=== PATIENT | female | born 1975 | race Caucasian/White ===

== ENCOUNTER 2016-12-08 15:23 | Day surgery (SDC) | payer OTHER ==
[~2016-12-08] VITALS: Ht 162.6 cm; Wt 68.1 kg
--- NOTE | ~2016-12-08 | OR ---
ADMIT: 12/08/2016 RM/LOC: [facility] MR#: [id number] [address] [address] JOSEFINA COSTA [address] [place] [address] Operative/Delivery Room Report SEX: F AGE: 41 : 1975 SURGERY DATE: 12/08/2016 SURGEON: Elliot Thomas MD PREOPERATIVE DIAGNOSIS: Acute appendicitis. POSTOPERATIVE DIAGNOSIS: Acute nonperforated appendicitis. PROCEDURE PERFORMED: Laparoscopic appendectomy. ANESTHESIA: General endotracheal. ESTIMATED BLOOD LOSS: Less than 10 mL. DESCRIPTION OF PROCEDURE: After appropriate informed consent was obtained, the patient was brought to the operating room. General endotracheal anesthesia was induced. The patient's abdomen was prepped and draped in a sterile fashion. A small infraumbilical incision was created. Veress needle was introduced. The abdomen was insufflated with CO2. A 5 mm trocar was placed. The camera was introduced. The abdomen was surveyed. She had no intraabdominal adhesions. Two additional ports were placed. The appendix was identified, obviously inflamed but not perforated or ruptured. A window was made through the appendiceal mesentery at the base of the appendix. She had a very thickened base of the appendix. So, it was kind of difficult to get through this area, but ultimately I was able to get through the mesentery at the base of the appendix. An Endo-JENN stapler with 3.5 mm misty was placed across the base of the appendix, in fact more onto the cecum. It took 2 firings of this 3.5 stapler to get across the appendiceal base including a little bit of the cecum along with that. I then transected across the appendiceal mesentery with a 2.5 mm load of the stapler. With the appendix freed up, it was placed in an EndoCatch bag and brought out through the left ADMIT: 12/08/2016 RM/LOC: [facility] MR#: [id number] [address] JOSEFINA COSTA [address] [place] [id number] Operative/Delivery Room Report SEX: F AGE: 41 : 1975 lower quadrant port site. The port was reintroduced. Right lower quadrant and pelvis were copiously irrigated and suctioned out. It should be noted she did have right and left inguinal hernia. The right side was a little bit larger than the left and appeared to be small direct inguinal hernias. With the appendix out and everything washed out, all the wounds were infiltrated with Marcaine. Left lower quadrant fascial defect was closed with figure-of- eight 0 Vicryl suture. The abdomen was next desufflated, ports removed, skin closed with 4-0 Monocryl in the subcuticular layer. Sterile dressings were applied. The patient tolerated the procedure well and was taken to the recovery room in stable condition. Elloit Thomas MD/ ivis JOB #: [id number] CC: Elliot Tohmas, Attending Physician Geno Vasquez, Family Physician Geno Vasquez MD
--- NOTE | 2016-12-16 10:45 | HP ---
ADMIT: 12/08/2016 RM/LOC: [facility] MR#: [id number] [address] MATTIE COSTA [address] [place] [address] History and Physical SEX: F AGE: 41 : 1975 DATE OF SERVICE: CHIEF COMPLAINT: Abdominal pain. HISTORY OF PRESENT ILLNESS: Mattie is a very pleasant 41-year-old female, who developed flu-like symptoms on Wednesday, so two days ago. At that time, she endorsed abdominal pain, nausea with emesis, and some mild diarrhea. Her abdominal pain was diffuse throughout her abdomen but as time progressed, traveled more to her right lower quadrant. Her nausea has resolved. She denies ever having prior instances like this before. She has also had some mild night sweats two nights ago. She denies any dark or bloody stools, or hematemesis. PAST MEDICAL HISTORY: No significant history. PAST SURGICAL HISTORY: 1. Breast lumpectomy, right, 2015. 2. Laparoscopic cholecystectomy. ALLERGIES: NO KNOWN DRUG ALLERGIES. MEDICATIONS: control. FAMILY HISTORY: Noncontributory. SOCIAL HISTORY: The patient is a social drinker, but denies any tobacco or illicit drug use. REVIEW OF SYSTEMS: CONSTITUTIONAL: The patient has had some mild night sweats, but denies any fevers. The rest of a comprehensive 10-point review of systems was performed and all other systems are negative. PHYSICAL EXAMINATION: GENERAL: The patient is in no acute distress. She is alert and oriented. HEENT: Head is normocephalic and atraumatic. EOMS are intact. Conjunctivae free of icterus, erythema, or pallor. Pinnae, free of deformities. Nose, midline. No tracheal deviation. NECK: Supple. SKIN: Negative for jaundice, clubbing, edema, pallor, or cyanosis. LUNGS: Clear to auscultation bilaterally. Normal respiratory effort. HEART: Distal pulses intact. Regular rate and rhythm. No murmurs noted. ABDOMEN: Soft, nondistended, tender in right lower quadrant at McBurney point tenderness. Negative Rovsing sign. Negative obturator sign. Negative psoas sign. ADMIT: 12/08/2016 RM/LOC: [facility] MR#: [id number] [address] MATTIE COSTA [address] [place] [address] History and Physical SEX: F AGE: 41 : 1975 DIAGNOSTIC IMAGING: CT of abdomen and pelvis revealed dilated appendix, suspicious for acute appendicitis. ASSESSMENT AND PLAN: Acute appendicitis. Plan is to have the patient undergo laparoscopic possible open appendectomy this evening, performed by Dr. Thomas. I discussed the risks, alternatives, benefits, and complications of surgery with the patient to which she is in agreement of this plan, had all her questions answered, and would like to proceed. She is on the surgery schedule, so she will be going back in a matter of time. BRIDGETT Zendejas / Elliot Thomas MD / ivis JOB #: [id number] CC: Elliot Thomas, Attending Physician Geno Vasquez, Family Physician
--- NOTE | 2016-12-16 10:45 | HP ---
ADMIT: 12/08/2016 RM/LOC: [facility] MR#: [id number] [address] [address] JOSEFINA COSTA [address] [place] [address] History and Physical SEX: F AGE: 41 : 1975 DATE OF SERVICE: ADDENDUM: Addendum to an H and P by BRIDGETT Zendejas CHIEF COMPLAINT: Right lower quadrant abdominal pain. HISTORY OF PRESENT ILLNESS: This is a patient of Dr. Geno Vasquez, whose had pain in her right side for a day or so now. She was seen by Dr. Vasquez, felt to have concerning findings for acute appendicitis, so was sent over for CT scan, which she had done, which confirms acute appendicitis. PHYSICAL EXAMINATION: On exam, her abdomen is soft. It is nondistended but she is tender in the right lower quadrant. A little bit of guarding and rebound. ASSESSMENT: Acute appendicitis. PLAN: I have recommended proceeding with laparoscopic appendectomy. I have gone through risks and benefits of the procedure in depth with the patient. She does understand with all this and agrees to proceed. Elliot Thomas MD/ ivis JOB #: [id number] CC: Elliot Thomas, Attending Physician Geno Vasquez, Family Physician
== END 2016-12-08 19:04 | disposition home or self-care (01) ==
LOC: SSS 15:23
PROC: 0DTJ4ZZ Resection of Appendix, Percutaneous Endoscopic Approach (ICD-10-PCS; principal; 2016-12-08)
DX: K35.80 Unspecified acute appendicitis (principal); Z98.890 Other specified postprocedural states; Z90.49 Acquired absence of other specified parts of digestive tract; Z79.899 Other long term (current) drug therapy